=== PATIENT | male | born 1995 ===

== ENCOUNTER 2024-01-29 12:38 | Outpatient (CLI) | payer SELFPAY ==
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
--- OUTSIDE RECORDS SUMMARY | 2024-01-29 12:43 | XMS_ITS | Encounter Summary ---
Author Organization [facility] Address [address] [place] [id number] Care Team Providers Care Line Technician Name Role Phone Evelio Hurtado MD Primary Care Provider [phone] Encounter Details Date Type Department Care Team (Late st Contact Info) Description 11/17/2016 Results Only [facility] [phone] Aleksandr Metcalf MD Social History Tobacco Use Types Packs/Day Years Used Date Smoking Tobacco: Never Assessed Sex and Gender Information Value Date Recorded Sex Assigned at Not on file Gender Identity Male 11/06/2021 13:06 EDT Sexual Orientation Not on file documented as of this encounter Plan of Treatment Not on file documented as of this encounter Procedures Procedure Name Priority Date/Time Associated Diagnosis Comments SURGICAL PATHOLOGY Routine 11/17/2016 14 :41 EDT documented in this encounter Results * SURGICAL PATHOLOGY (11/17/2016 14:41 EDT) Pathology Report: SURGICAL PATHOLOGY REPORT Reports generated via electronic interface contain original data; however they are lacking the format of the original report. Caution should be taken when reading/interpreting unformatted reports. Name: ? ERICK COREA ? Accession #: ? [id number] ? : ? 1995 (Age: 21) ??M ? Collect Date: ? 11/17/2016 ? Location: ? [facility] ? Receive Date: ? 11/19/2016 ? Provider: ALEKSANDR METCALF MD Copy to: MAXIMILIANO HURTADO MD ? Final Pathologic Diagnosis: APPENDIX, APPENDECTOMY: - ??Acute suppurative appendicitis and periappendicitis with prominent lymphoid aggregates. ??See comment. Comment: Well sampling of this case had been performed. Deeper sections have been examined. Case has been reviewed at the intradepartmental GI consensus conference. ?? ANTIBODY(CLONE)(BLOC K):RESULT CD20 (B-cell) (L26, [place]), CD3 (T-cell) (Rabbit Monoclonal (SP7), [employer]), BCL-2 Oncoprotein (124, [place]), CD43 (MT1, [employer]) (2): Highlights detached reactive germinal center in lumen ? NOTE: ??One or more of the reagents used in immunoperoxidase testing in this case may not have been cleared or approved by the U.S. Food and Drug Administration (FDA). ??The FDA has determined that such clearance or approval is not necessary. ??These tests are used for clinical purposes. ??They should not be regarded as investigational or for research. ??These reagents' performance characteristics have been determined by [facility]. ??The positive and negative controls worked appropriately. If immunoperoxidase staining has been performed on alcohol fixed cytology specimens, which has not been fully validated, the assays should be interpreted with caution and correlated with clinical data. ??This laboratory is certified under the Clinical Laboratory Improvement Amendments of 1988 (CLIA-88) as qualified to perform high complexity clinical laboratory testing. Dr. Goodman 11/23/2016 1:11 PM Document reviewed and electronically signed by: DARYL NGUYEN MD Report ??Date: 11/24/2016 06:29 By the signature above, the attending physician certifies that he/she has personally conducted a gross and/or microscopic examination of the described specimens and rendered or confirmed the above diagnosis. Specimen(s) Received: Appendix Clinical History: Acute appendicitis Gross Description: ? Received in formalin labelled with proper patient identification (initials W, W) and not otherwise specified is a vermiform appendix (5.5 cm in length x 0.5 cm in diameter), with a moderate amount of attached mesoappendix. The proximal margin is stapled and inked blue ? The serosa is kennedy-purple dull and hyperemic. The cut surface is ge-pink and hemorrhagic no definitive perforation. The average wall thickness is 0.2 cm. ? The section adjacent to the proximal stapled margin, two wholesale representative cross sections and one half of the longitudinally bisected distal tip are submitted in 1 intermediate cross-sections are submitted in 2-4. JACQUELINE Baldwin (ASCP) 11/19/2016 4:28 PM End of Report [facility] 11/17/2016 14:4 1 EDT 11/19/2016 14:41 EDT Aleksandr Metcalf MD PATHOLOGY ORDERABLES [facility] [address] [place] [address] documented in this encounter Visit Diagnoses Not on filedocumented in this encounter Care Teams Line Technician Relationship Specialty Start Date End Date Evelio Hurtado MD [address] [phone] PCP - General 08/05/16 documented as of this encounter
--- OUTSIDE RECORDS SUMMARY | 2024-01-29 12:43 | XMS_ITS | Encounter Summary ---
Author Organization [facility] Address [address] [place] [address] Care Team Providers Care Aerial Applicator Pilot Name Role Phone Evelio Judge MD Primary Care Provider [phone] Reason for Visit * Reason Comments Diarrhea Pt states he has bee n having watery stools for the past 3days. He has felt nauseated and clammy at times. No recent ABX. Pt is pale and diaphoretic. Encounter Details Date Type Department Care Team (Late st Contact Info) Description 11/06/2021 12:52 EDT - 11/06/2021 14:59 EDT Emergency [facility] Emergency Department [address] [place] [address] Dom Joiner MD [address] [place] [address] Diarrhea of presumed infectious origin (Primary Dx) Discharge Disposition: Home or Self Care Social History Tobacco Use Types Packs/Day Years Used Date Smoking Tobacco: Never Smokeless Tobacco: Never Alcohol Use Standard Drinks/Week Comments Not Currently 0 (1 standard drink = 0.6 oz pur e alcohol) quit drinking in 07/08 Sex and Gender Information Value Date Recorded Sex Assigned at Not on file Gender Identity Male 11/06/2021 13:06 EDT Sexual Orientation Not on file COVID-19 Exposure Response Date Recorded In the last 10 days, have yo u been in contact with someone who was confirmed or suspected to have Coronavirus/COVID-19? No / Unsure 11/06/2021 12:07 EDT documented as of this encounter Last Filed Vital Signs Vital Sign Reading Time Taken Comments Blood Pressure 129/73 11/06/2021 1442 EDT Pulse 97 11/06/2021 1208 EDT Temperature 35.1 ??C (95.2 ??F) 11/06/2021 1208 EDT Respiratory Rate 16 11/06/2021 1442 EDT Oxygen Saturation 99% 11/06/2021 1442 EDT Inhaled Oxygen Concentration - - Weight 136.1 kg (300 lb) 11/06/2021 1208 EDT Height 185.4 cm (6' 1) 11/06/2021 1208 EDT Body Mass Index 39.58 11/06/2021 1208 EDT documented in this encounter Functional Status Functional Status Response Date of Assess ment Are you deaf or do you have serious difficulty h earing? No 11/06/2021 documented as of this encounter Discharge Instructions * Discharge Instructions* Dom Joiner MD - 11/06/2021 14:36 EDT [facility] Emergency Department Discharge Instructions Diagnosis: Presumed infectious diarrhea-symptoms should improve over the next several days For pain you can take: Ibuprofen (also known as advil or motrin) 400-600mg Acetaminophen (known as Tylenol) 650mg You can alternate these every 3 hours or take them together every 6 hours. I would recommend you take Imodium 3-4 times a day before meals. Follow up: Follow-up with your primary care provider as needed. We will call you with the results of your COVID test Return Precautions: If you have significant worsening of your symptoms especially significant abdominal pain, refractory vomiting, or other symptoms that are particularly concerning to you please return to the emergencyroom for reevaluation. documented in this encounter Discharge Disposition Disposition Code Departure Means Destination Home or Self Snf documented in this encounter ED Notes * Dom Joiner MD - 11/06/2021 1304 EDT Emergency Department Visit Assessment and ED Course 26-year-old male presents for evaluation of nonbloody diarrhea for the last 3 days. On arrival herein the emergency department he is awake and alert, hemodynamically stable. Triage vital signs significant for temperature of 95.2. Repeat by myself is 97.9 without intervention immediately upon patient being roomed. Abdominal exam is fairly benign. Symptoms seem consistent with presumed viral gastroenteritis. No fever, bloody stool or travel history to warrant antibiotic use. No history of recent antibioticuse to suggest need for C. difficile testing. Multiple sick contacts at home. We will treat empirically with Zofran, IV fluids. Labs including CBC, CMP, lipase ordered. If lab work largely reassuring anticipate discharge with symptomatic care instructions Final diagnoses: Diarrhea of presumed infectious origin Disposition: Discharged Chief complaint: diarrhea HPI Erick Strauss is a 26 y.o. male presents for evaluation of diarrhea and nausea. Patient states that he began feeling extremely nauseated dizzy and lightheaded on Wednesday night intoWednesday morning at 2 AM. Since then, he has been having increasingly frequent episodes of nonbloodystools. He states that he has been having loose watery diarrhea that today changed into more of a ge frothy color. Generalized mild diffuse abdominal cramping and gassiness . No significant pain. No fevers. No chest pain or difficulty breathing. Multiple sick contacts at home as his children have had a cough and some GI symptoms. Previous history of appendectomy, no other abdominal surgeries. No family history of inflammatory bowel diseases that he is aware of. No blood in his stool reported. No recent travel. History was provided by: Patient Patient's pertinent PMH, FH, SH were reviewed and edited as necessary. ROS A 10-point review of systems was performed. The patient answered negative to all questions with theexceptions of those explicitly detailed as positives in the HPI. Pertinent negatives are also explicitly stated. Physical Exam BP 129/73 Pulse 97 Temp (!) 35.1 ??C (95.2 ??F) (Temporal) Resp 16 Ht 185.4 cm (73) Wt (!) 136.1 kg (300 lb) SpO2 99% BMI 39.58 kg/m?? A medical screening exam was performed. Physical Exam Constitutional: Appearance: He is well-developed and well-nourished. HENT: Nose: No nasal discharge. Cardiovascular: Rate and Rhythm: Normal rate. Pulmonary: Effort: No respiratory distress. Abdominal: General: There is no distension. Comments: Mild diffuse generalized abdominal discomfort. No guarding or rebound. No focal localization of pain Musculoskeletal: General: Normal range of motion. Cervical back: Normal range of motion. Skin: General: Skin is warm and dry. Neurological: Mental Status: He is alert and oriented to person, place, and time. Psychiatric: Mood and Affect: Mood and affect normal. Laboratory results independently reviewed. Procedures Procedures documented in this encounter Plan of Treatment Not on file documented as of this encounter Procedures Procedure Name Priority Date/Time Associated Diagnosis Comments LIPASE STAT 11/06/2021 13:48 EDT COMPREHENSIVE METABOLIC PANEL (CMP) STAT 11/06/2021 13:48 EDT COMPLETE BLOOD COUNT AND DIFFERENTIAL STAT 11/06/2021 13:47 EDT ZZCOVID-19 TEST [facility] PCR Today 11/06/2021 13:42 EDT COVID-19 TESTING Routine 11/06/2021 13:4 2 EDT documented in this encounter Results * LIPASE (11/06/2021 13:48 EDT) Lipase 55 <251 U/L 11/06/2021 14:08 EDT [facility] Blood VENOUS BLOOD / Unknown Venipuncture / Unknown 11/06/2021 13:48 EDT 11/06/2021 13:49 EDT Dom Joiner MD CHEMISTRY & BLOOD GA S ORDERABLES [facility] [address] [place] [address] * (ABNORMAL) COMPREHENSIVE METABOLIC PANEL (CMP) (11/06/2021 13:48 EDT) Sodium 141 136 - 145 mmol/L 11/06/2021 14:08 EDT [facility] Potassium 4.5 3.5 - 5.0 mmol/L 11/06/2021 14:08 EDT [facility] Chloride 104 96 - 110 mmol/L 11/06/2021 14:08 EDT [facility] CO2 Total 24 22 - 32 mmol/L 11/06/2021 14:08 [facility] Glucose 91 70 - 100 mg/dL 11/06/2021 14:08 [facility] BUN 17 10 - 26 mg/dL 11/06/2021 14:08 [facility] Creatinine 0.98 0.66 - 1.25 mg/dL 11/06/2021 14:08 [facility] eGFR 108 >60 mL/min/1.7 3m2 11/06/2021 14:08 [facility] Total Protein 7.4 6.3 - 8.2 g/dL 11/06/2021 14:08 [facility] Albumin 4.3 3.4 - 4.9 g/dL 11/06/2021 14:08 [facility] Alkaline Phosphatase 98 38 - 126 U/L 11/06/2021 14:08 [facility] AST 37 15 - 46 U/L 11/06/2021 14:08 [facility] ALT 58(H) <50 U/L 11/06/2021 14:08 [facility] Bilirubin, Total 0.4 <1.4 mg/dL 11/07/19 14:08 [facility] Calcium 8.9 8.5 - 10.5 mg/dL 11/06/2021 14:08 [facility] Albumin/Globulin Ratio 1.4 1.0 - 2.5 11/06/2021 14:08 [facility] Anion Gap 13 5 - 14 11/06/2021 14:08 [facility] Blood VENOUS BLOOD / Unknown Venipuncture / Unknown 11/06/2021 13:48 EDT 11/06/2021 13:49 EDT Dom Joiner MD CHEMISTRY & BLOOD GA S ORDERABLES [facility] [address] [place] [address] * (ABNORMAL) COMPLETE BLOOD COUNT AND DIFFERENTIAL (11/06/2021 13:47 EDT) [facility] WBC 10.17 4.00 - 10.40 K/cmm 11/06/2021 13:54 [facility] RBC 4.83 4.36 - 5.78 M/cmm 11/06/2021 13:54 [facility] Hemoglobin 14.5 13.8 - 17.3 gm/dL 11/06/2021 13:54 [facility] HCT 42.4 39.5 - 50.2 % 11/06/2021 13:54 [facility] MCV 88 81 - 95 fl 11/06/2021 13:54 [facility] MCH 30.0 27.6 - 33.0 pg 11/06/2021 13:54 [facility] MCHC 34.2 32.8 - 36.4 gm/dL 11/06/2021 13:54 [facility] RDW-CV 11.8 <14.2 % 11/06/2021 13:54 [facility] RDW-SD 38.0 <46.0 fl 11/06/2021 13:54 [facility] PLT 333 141 - 377 K/cmm 11/06/2021 13:54 [facility] MPV 10.2 9.5 - 12.7 fl 11/06/2021 13:54 [facility] % Neutrophils 59.5 % 11/06/2021 13:54 [facility] % Lymphocytes 27.3 % 11/06/2021 13:54 [facility] % Monocytes 9.1 % 11/06/2021 13:54 [facility] % Eosinophils 2.7 % 11/06/2021 13:54 [facility] % Basophils 0.8 % 11/06/2021 13:54 [facility] % Immature Grans 0.6 % 11/07/19 13:54 [facility] Absolute Neutrophils 6.05 2.20 - 8.85 K/cmm 11/06/2021 13:54 [facility] Absolute Lymphocytes 2.78 1.09 - 3.30 K/cmm 11/06/2021 13:54 [facility] Absolute Monocytes 0.93(H) 0.10 - 0.80 K/cmm 11/06/2021 13:54 [facility] Absolute Eosinophils 0.27 0.03 - 0.61 K/cmm 11/06/2021 13:54 [facility] ABS Basophils 0.08 0.01 - 0.11 K/cmm 11/06/2021 13:54 [facility] Absolute Immature Grans 0.06 0.00 - 0.06 K/cmm 11/06/2021 13:54 [facility] Type of Differential: Auto 11/06/2021 13:54 [facility] Blood VENOUS BLOOD / Unknown Venipuncture / Unknown 11/06/2021 13:47 EDT 11/06/2021 13:48 EDT Dom Joiner MD PACKAGES & DNA PROBE ORDERABLES Performing Organization Address [facility]/ZIP Co de Phone Number [facility] [address] [place] [address] * COVID-19 TEST [facility] PCR (11/06/2021 13:42 EDT) Swab ENTIRE NASOPHARYNX / Unknown Swab / Unknown 11/06/2021 13:42 EDT 11/06/2021 13:48 EDT Dom Joiner MD MICROBIOLOGY - GENER AL ORDERABLES [facility] [address] [place] [address] * COVID-19 TESTING (11/06/2021 13:42 EDT) COVID-19 rt-PCR Result Negative Negative 11/07/2021 11:39 EDT [facility] Comment: This test has not been FDA cleared or approved. This test has been authorized by FDA under an EUA for use by authorized laboratories. This test has been authorized only for detection of nucleic acid from 2019-nCoV, not for any other viruses or pathogens. This test is only authorized for the duration of the declaration that circumstances exist justifying the authorization of emergency use of in vitro diagnostic tests for detection and/or diagnosis of 2019-nCoV under section 564(b)(1) of Act, 21 U.S.C ?? 360bbb-3(b) (1), unless the authorization is terminated or revoked sooner. Negative results do not preclude 2019-nCoV infection and should not be used as the sole basis for treatment or other patient management decisions. Negative results must be combined with clinical observations, patient history, and epidemiological information. Testing was performed using the lizzie SARS-CoV-2 assay ([employer] on the Lizzie 6800 System Performing Lab Lizzie 6800 [facility] 11/07/2021 11:39 EDT [facility] Swab ENTIRE NASOPHARYNX / Unknown Swab / Unknown 11/06/2021 13:42 EDT 11/06/2021 13:48 EDT Dom Joiner MD MICROBIOLOGY - GENER AL ORDERABLES [facility] [address] [place] [address] documented in this encounter Visit Diagnoses Diagnosis Diarrhea of presumed infectious origin- Primary documented in this encounter Administered Medications Inactive Administered Medications - up to 3 most recent administrations Medication Order MAR Action Action Date Dose Rate Site lactated ringers BOLUS 1,000 mL 1,000 mL, intravenous, NOW X1, 1 dose, On Billie 11/06/21 at 1345, STAT Given 11/06/2021 13:42 EDT 1,000 mL loperamide (IMODIUM) capsule 2 mg 2 mg, oral, NOW X1, 1 dose, On Billie 11/06/21 at 1345, STAT Given 11/06/2021 13:43 EDT 2 mg ondansetron (PF) (ZOFRAN) injection 4 mg 4 mg, intravenous, NOW X1, 1 dose, On Billie 11/06/21 at 1345, STAT Given 11/06/2021 13:42 EDT 4 mg documented in this encounter Active and Recently Administered Medications Times are shown in EDT. Scheduled Medication Order 11/04/2021 11/05/2021 11/06/2021 lactated ringers BOLUS 1,000 mL (COMPLETED) 1,000 mL, intravenous, NOW X1, 1 dose, On Billie 11/06/21 at 1345, STAT 1342 (Given - Provid er: Katharine Yun RN) loperamide (IMODIUM) capsule 2 mg (COMPLETED) 2 mg, oral, NOW X1, 1 dose, On Billie 11/06/21 at 1345, STAT 1343 (Given - Provid er: Katharine Yun RN) ondansetron (PF) (ZOFRAN) injection 4 mg (COMPLETED) 4 mg, intravenous, NOW X1, 1 dose, On Billie 11/06/21 at 1345, STAT 1342 (Given - Provid er: Katharine Yun RN) documented in this encounter Care Teams Aerial Applicator Pilot Relationship Specialty Start Date End Date Evelio Judge MD [address] [address] PCP - General 08/05/16 documented as of this encounter
--- OUTSIDE RECORDS SUMMARY | 2024-01-29 12:43 | XMS_ITS | Encounter Summary ---
Author Organization [facility] Address [address] [place] [address] Care Team Providers Care Telecommunications Field Engineer Name Role Phone Juwan French MD Primary Care Provider [phone] Encounter Details Date Type Department Care Team ([facility] st Contact Info) Description 09/29/2015 Results Only [facility] [phone] Amadou Arzola MD [address] [place] [phone] Social History Tobacco Use Types Packs/Day Years Used Date Smoking Tobacco: Never Assessed Sex and Gender Information Value Date Recorded Sex Assigned at Not on file Gender Identity Male 11/06/2021 13:06 EDT Sexual Orientation Not on file documented as of this encounter Plan of Treatment Not on file documented as of this encounter Procedures Procedure Name Priority Date/Time Associated Diagnosis Comments TSH Routine 09/29/2015 18:00 EDT documented in this encounter Results * TSH (09/29/2015 18:00 EDT) TSH 1.13 0.55 - 4.78 uIU/ml 09/30/2015 21:13 EDT [facility] BLOOD SPECIMEN / Unknown 09/29/2015 18:00 EDT 09/30/2015 18:00 EDT Amadou Arzola MD CHEMISTRY & BLO OD GAS ORDERABLES [facility] [address] [place] [address] documented in this encounter Visit Diagnoses Not on filedocumented in this encounter Care Teams Telecommunications Field Engineer Relationship Specialty Start Date End Date Juwan French MD [address] [place] [address] PCP - General 01/29/13 08/04/16 documented as of this encounter
--- OUTSIDE RECORDS SUMMARY | 2024-01-29 12:43 | XMS_ITS | Clinical Summary ---
Author Organization [facility] Address [address] [place] [address] Care Team Providers Care Die Fitter Name Role Phone Evelio Judge MD Primary Care Provider [phone] Allergies No known active allergies Medications No known medications Social History Tobacco Use Types Packs/Day Years Used Date Smoking Tobacco: Never Smokeless Tobacco: Never Alcohol Use Standard Drinks/Week Comments Not Currently 0 (1 standard drink = 0.6 oz pur e alcohol) quit drinking in 07/08 Sex and Gender Information Value Date Recorded Sex Assigned at Not on file Gender Identity Male 11/06/2021 13:06 EDT Sexual Orientation Not on file Obstetrics History Last Filed Vital Signs Vital Sign Reading [...] Body Mass Index 39.58 11/06/2021 1208 EDT Plan of Treatment Health Maintenance Due Date Last Done Comments Hepatitis C Screen 1993 Hepatitis B Vaccine (1 of 3 - 19+ 3-dose series) 07/05 COVID-19 Vaccine ( season) 2023 Care Teams Die Fitter Relationship Specialty Start Date End Date Evelio Judge MD [facility] [address] [place] [address] PCP - General 08/05/16
--- OUTSIDE RECORDS SUMMARY | 2024-01-29 12:43 | XMS_ITS | Encounter Summary ---
Author Organization [facility] Address [address] [place] [address] Care Team Providers Care Rejector Name Role Phone Evelio Judge MD Primary Care Provider [phone] Encounter Details Date Type Department Care Team (Late st Contact Info) Description 08/05/2016 Results Only [facility] [phone] Justin Leonard PA-C [address] [place], [place] [id number] Social History Tobacco Use Types Packs/Day Years Used Date Smoking Tobacco: Never Assessed Sex and Gender Information Value Date Recorded Sex Assigned at Not on file Gender Identity Male 11/06/2021 13:06 EDT Sexual Orientation Not on file documented as of this encounter Plan of Treatment Not on file documented as of this encounter Procedures Procedure Name Priority Date/Time Associated Diagnosis Comments CHEST PA 08/05/2016 13:19 EDT documented in this encounter Results * CHEST PA (08/05/2016 13:19 EDT) Anatomical Region Laterality Modality Other 08/05/2016 13:1 9 EDT 08/05/2016 13:30 EDT Narrative 08/05/2016 13:30 EDT CHEST PA ??08/05/2016 1:19 PM Clinical History/Comments: Chest x-ray 1 view for surveillance. COMPARISON: None. TECHNIQUE: Frontal view of the chest was performed using dual energy technique with bone and soft tissue reconstruction. FINDINGS: Soft tissues: ??Normal. Bones: Normal. ?? Cardiac and mediastinal contours:Normal. Lungs: Normal. ?? Pleura/diaphragms:Normal. IMPRESSION: 1. ??Normal chest x-ray. Procedure Note Ashish Ward MD - 08/05/2016 CHEST PA 08/05/2016 1:19 PM Clinical History/Comments: Chest x-ray 1 view for surveillance. COMPARISON: None. TECHNIQUE: Frontal view of the chest was performed using dual energy technique with bone and soft tissue reconstruction. FINDINGS: Soft tissues: Normal. Bones: Normal. Cardiac and mediastinal contours:Normal. Lungs: Normal. Pleura/diaphragms:Normal. IMPRESSION: 1. Normal chest x-ray. Justin Leonard PA-C IMG DIAGNOSTIC I MAGING ORDERABLES documented in this encounter Visit Diagnoses Not on filedocumented in this encounter Care Teams Rejector Relationship Specialty Start Date End Date Evelio Judge MD [address] [phone] PCP - General 08/05/16 documented as of this encounter
--- OUTSIDE RECORDS SUMMARY | 2024-01-29 12:43 | XMS_ITS | Encounter Summary ---
Author Organization [facility] Address [address] [place] [address] Care Team Providers Care Supervisor Soldering Name Role Phone Evelio Judge MD Primary Care Provider [phone] Encounter Details Date Type Department Care Team (Latest Contact Info) Description 08/05/2016 13:04 EDT - 08/05/2016 23:59 EDT Hospital Encounter [facility] - [address] [place] [address] Justin Leonard PA-C [address] [place] [address] Discharge Disposition: Auto Discharge Social History Tobacco Use Types Packs/Day Years Used Date Smoking Tobacco: Never Assessed Sex and Gender Information Value Date Recorded Sex Assigned at Not on file Gender Identity Male 11/06/2021 13:06 EDT Sexual Orientation Not on file documented as of this encounter Discharge Disposition Disposition Code Departure Means Destination Auto Discharge Home documented in this encounter Plan of Treatment Not on file documented as of this encounter Procedures Procedure Name Priority Date/Time Associated Diagnosis Comments PATHOLOGY - SCANNED 08/10/2016 1 4:22 EDT PATHOLOGY - SCANNED 08/07/2016 1 7:35 EDT URINE CHEMICAL (DIP) & SEDIMENT (MICRO) WITHOUT REFLEX TO CULTURE Routine 08/05/2016 13:35 EDT MISCELLANEOUS TEST, SAUSALITO Routine 08/05/2016 13:18 EDT MISCELLANEOUS TEST, SAUSALITO Routine 08/05/2016 13:15 EDT CHROMIUM SERUM Routine 08/05/2016 13:10 EDT COMPLETE BLOOD COUNT AND DIFFERENTIAL Routine 08/05/2016 13:10 EDT COMPREHENSIVE METABOLIC PANEL (CMP) Routine 08/05/2016 13:10 EDT documented in this encounter Results * PATHOLOGY - SCANNED (08/10/2016 14:22 EDT) 08/10/2016 14:2 2 EDT Scan 2 Sanding Line Operator LAB INFO SERVICE AN D SUPPORT & PHONE RESULT * PATHOLOGY - SCANNED (08/07/2016 17:35 EDT) 08/07/2016 17:3 5 EDT Scan 2 Sanding Line Operator LAB INFO SERVICE AN D SUPPORT & PHONE RESULT * (ABNORMAL) URINALYSIS AND MICROSCOPIC (08/05/2016 13:35 EDT) Color, UA Yellow 08/05/2016 14:50 [facility] Clarity, UA Clear 08/05/2016 14:50 [facility] Glucose, UA Neg Neg 08/05/2016 14:50 [facility] Bilirubin, UA Neg Neg 08/05/2016 14:50 [facility] Ketones, UA Neg Neg 08/05/2016 14:50 [facility] Specific Rosie, Urine <1.005 1.001 - 1.035 08/05/2016 14:50 [facility] Blood, UA Trace(A) Neg 08/05/2016 14:50 [facility] pH, UA 5.5 4.6 - 8.0 08/05/2016 14:50 [facility] Protein, UA Neg Neg 08/05/2016 14:50 [facility] Urobilinogen, UA 0.2 0.2 - 1.0 E.U./dl 08/05/2016 14:50 [facility] Nitrite, UA Neg Neg 08/05/2016 14:50 [facility] Leuk Esterase Neg Neg 08/05/2016 14:50 [facility] WBC, UA None seen 0 - 5 /HPF 08/05/2016 14:50 [facility] RBC, UA 1 to 5 0 - 5 /HPF 08/05/2016 14:50 [facility] Squam Epithel, UA None seen None seen /HPF 08/05/2016 14:50 [facility] Renal Epithel, UA None seen None seen /HPF 08/05/2016 14:50 [facility] Bacteria, UA None seen None seen /HPF 08/05/2016 14:50 [facility] Crystals, UA None seen /HPF 08/05/2016 14:50 [facility] Hyaline Casts, UA None seen /LPF 08/05/2016 14:50 [facility] UA Comment Microscopic results 08/05/2016 13:39 [facility] Comment: are unreliable on urines unrefrig >2hrs or refrig >8hrs. URINE / Unknown 08/05/2016 1 3:35 EDT 08/05/2016 13:35 EDT Justin Leonard PA-C URINALYSIS ORDER JONO [facility] [address] [place] [address] * MISCELLANEOUS TEST (08/05/2016 13:18 EDT) Test Name LEAD PROFILE OCCUPATIONAL EXPOSURE 08/05/2016 13:19 T [facility] Result See Pathology Scanned Report in PRISM. 08/10/2016 9:13 T [facility] Ref Range See Pathology Scanned Report in PRISM. 08/10/2016 9:13 [facility] Ref Lab Test performed by: 08/10/2016 9:13 T [facility] Comment: [facility] [place], [place] TOPOGRAPHY UNKNOWN / Unknown 08/05/2016 13:18 EDT 08/05/2016 13:18 EDT Justin SANCHEZC CHEMISTRY & BLOO D GAS ORDERABLES Performing Organization Address City/[facility]/ZIP Co de Phone Number [facility] [address] [place] [address] * MISCELLANEOUS TEST (08/05/2016 13:15 EDT) Test Name CADMIUM, BLOOD 08/05/2016 13:17 EDT [facility] Result See Pathology Scanned Report in PRISM. 08/11/2016 13:32 EDT [facility] Ref Range See Pathology Scanned Report in PRISM. 08/11/2016 13:32 EDT [facility] Ref Lab Test performed by: 08/11/2016 13:32 EDT [facility] Comment: [place], [place] TOPOGRAPHY UNKNOWN / Unknown 08/05/2016 13:15 EDT 08/05/2016 13:15 EDT Justin Leonard PA-C CHEMISTRY & BLOO D GAS ORDERABLES Performing Organization Address City/[facility]/ZIP Co de Phone Number [facility] [address] [place] [address] * (ABNORMAL) COMPREHENSIVE METABOLIC PANEL (CMP) (08/05/2016 13:10 EDT) Potassium 4.7 3.5 - 5.0 mEq/L 08/05/2016 14:02 EDT [facility] Sodium 142 136 - 145 mEq/L 08/05/2016 14:02 EDT [facility] Chloride 102 96 - 110 mEq/L 08/05/2016 14:02 [facility] CO2 25 22 - 32 mEq/L 08/05/2016 [facility] Total Alkaline Phosphatase 98 38 - 126 U/L 08/05/2016 14:02 EDT [facility] Bilirubin, Total 0.8 <1.4 mg/dl 08/06/19 17 14:02 [facility] AST 32 15 - 46 U/L 08/05/2016 14:02 [facility] ALT 44 21 - 72 U/L 08/05/2016 14:02 [facility] Albumin 5.1(H) 3.4 - 4.9 g/dl 08/05/2016 14:02 [facility] Total Protein 8.1 6.3 - 8.2 g/dl 08/05/2016 14:02 [facility] Creatinine 0.99 0.66 - 1.25 mg/dl 08/05/2016 14:02 [facility] GFR, Calculated 107 >60 ml/min/1.7 3m2 08/05/2016 14:02 [facility] Comment: eGFR calculated using CKD-EPI equation for non Americans. Multiply eGFR by 1.16 for Americans. BUN 20 10 - 26 mg/dl 08/05/2016 14:02 [facility] Calcium 9.8 8.5 - 10.5 mg/dl 08/05/2016 14:02 [facility] Calculated Calcium 8.9 8.5 - 10.5 mg/dl 08/05/2016 14:02 [facility] Glucose, Serum 92 70 - 100 mg/dl 08/05/2016 14:02 [facility] Fasting? Unknown 08/05/2016 14:02 [facility] BLOOD SPECIMEN / Unknown 08/05/2016 13:10 EDT 08/05/2016 13:10 EDT Justin Leonard PA-C CHEMISTRY & BLOO D GAS ORDERABLES [facility] [address] [place] [address] * CHROMIUM SERUM (08/05/2016 13:10 EDT) Chromium, Serum 0.2 <0.3 ng/mL 08/07/2016 14:53 [facility] Comment: (Note) . ADDITIONAL INFORMATION This test was developed and its performance characteristics determined by [facility] in a manner consistent with CLIA requirements. This test has not been cleared or approved by the U.S. Food and Drug Administration. Performed by: [facility]: [address], [place] [address], Lab Dir: Erick Meeks II, M.D., Ph.D. BLOOD SPECIMEN / Unknown 08/05/2016 13:10 EDT 08/05/2016 13:10 EDT Justin Leonard PA-C CHEMISTRY & BLOO D GAS ORDERABLES [facility] [address] [place] [address] * (ABNORMAL) HEMAGRAM AND DIFFERENTIAL (08/05/2016 13:10 EDT) WBC 10.43(H) 4.0 - 10.4 K/cmm 08/05/2016 13:45 [facility] RBC 4.63 4.36 - 5.78 M/cmm 08/05/2016 13:45 [facility] Hemoglobin 13.9 13.8 - 17.3 gm/dl 08/05/2016 13:45 [facility] HCT 40.9 39.5 - 50.2 % 08/05/2016 13:45 [facility] MCV 88 81 - 95 fl 08/05/2016 13:45 [facility] MCH 30.0 27.6 - 33.0 pg 08/05/2016 13:45 [facility] MCHC 34.0 32.8 - 36.4 gm/dl 08/05/2016 13:45 [facility] RDW-CV 11.9 11.8 - 14.1 % 08/05/2016 13:45 [facility] RDW-SD 38.2 36.5 - 45.9 fl 08/05/2016 13:45 [facility] PLT 370 141 - 377 K/cmm 08/05/2016 13:45 [facility] MPV 11.0 9.5 - 12.7 fl 08/05/2016 13:45 EDT [facility] % Neutrophils 62.8 % 08/05/2016 13:45 EDT [facility] % Lymphocytes 26.1 % 08/05/2016 13:45 [facility] % Monocytes 7.1 % 08/05/2016 13:45 EDT [facility] % Eosinophils 2.9 % 08/05/2016 13:45 EDT [facility] % Basophils 0.9 % 08/05/2016 13:45 EDT [facility] % Immature Grans 0.2 % 08/05/2016 13:45 [facility] ABS Neutrophils 6.56 2.20 - 8.85 K/cmm 08/05/2016 13:45 [facility] ABS Lymphs 2.72 1.09 - 3.30 K/cmm 08/05/2016 13:45 T [facility] ABS Monocytes 0.74 0.1 - 0.8 K/cmm 08/05/2016 13:45 T [facility] ABS Eosinophils 0.30 0.03 - 0.61 K/cmm 08/05/2016 13:45 [facility] ABS Basophils 0.09 0.01 - 0.11 K/cmm 08/05/2016 13:45 [facility] ABS Immature Grans 0.02 0 - 0.06 K/cmm 08/05/2016 13:45 T [facility] Type of Diff: Automated 08/05/2016 13:45 [facility] BLOOD SPECIMEN / Unknown 08/05/2016 13:10 EDT 08/05/2016 13:10 EDT Justin Leonard PA-C PACKAGES & DNA P ROBE ORDERABLES [facility] [address] [place] [address] documented in this encounter Visit Diagnoses Not on filedocumented in this encounter Care Teams Supervisor Soldering Relationship Specialty Start Date End Date Evelio Judge MD [address] [phone] PCP - General 08/05/16 documented as of this encounter
--- OUTSIDE RECORDS SUMMARY | 2024-01-29 12:43 | XMS_ITS | Encounter Summary ---
Author Organization [facility] Address [address] [place] [address] Care Team Providers Care Transitional Care Manager Name Role Phone Evelio Judge MD Primary Care Provider [phone] Encounter Details Date Type Department Care Team (Latest Contact Info) Description 11/06/2021 Travel Social History Tobacco Use Types Packs/Day Years [...] 12:07 EDT documented as of this encounter Functional Status Functional Status Response Date of Assess ment Are you deaf or do you have serious difficulty h earing? No 11/06/2021 documented as of this encounter Plan of Treatment Not on file documented as of this encounter Visit Diagnoses Not on filedocumented in this encounter Care Teams Transitional Care Manager Relationship Specialty Start Date End Date Evelio Judge MD [address] [phone] PCP - General 08/05/16 documented as of this encounter
--- OUTSIDE RECORDS SUMMARY | 2024-01-29 12:43 | XMS_ITS | Referral Summary ---
Author Organization [facility] Address [address] [place] [address] Care Team Providers Care Planning Advisor Name Role Phone Evelio Judge MD Primary Care Provider Allergies No known active allergies Medications No [...] 13:06 EDT Sexual Orientation Not on file Last Filed Vital Signs Vital Sign Reading [...] Body Mass Index 39.58 11/06/2021 1208 EDT Functional Status Functional Status Response Date of Assess ment Are you deaf or do you have serious difficulty h earing? No 11/06/2021 Plan of Treatment Not on file Care Teams Planning Advisor Relationship Specialty Start Date End Date Evelio Judge MD [address] [phone] PCP - General 08/05/16
--- OUTSIDE RECORDS SUMMARY | 2024-01-29 12:43 | XMS_ITS | Encounter Summary ---
Author Organization [facility] Address [address] [place] [address] Care Team Providers Care Clothing Man Name Role Phone Evelio Judge MD Primary Care Provider [phone] Encounter Details Date Type Department Care Team (Latest Contact Info) Description 11/17/2016 9:08 EDT - 11/17/2016 23:59 EDT Hospital Encounter [address] [address] Unknown, Provider, Discharge Disposition: Auto Discharge Social History Tobacco [...] on filedocumented in this encounter Care Teams Clothing Man Relationship Specialty Start Date End Date Evelio Judge MD [facility] [address] [place] [phone] PCP - General 08/05/16 documented as of this encounter
--- OUTSIDE RECORDS SUMMARY | 2024-01-29 12:44 | XMS_ITS | Encounter Summary ---
Author Organization [facility] Address [address] [place] [address] Care Team Providers Care Jboss Architect Name Role Phone Juwan French MD Primary Care Provider [phone] Encounter Details Date Type Department Care Team (Late st Contact Info) Description 01/29/2013 Results Only [facility] - [facility] ([facility] [address] [place], [place] [id number] Juwan French MD [address] [facility] [address] [place] [address] Social History Tobacco Use Types Packs/Day Years Used Date Smoking Tobacco: Never Assessed Sex and Gender Information Value Date Recorded Sex Assigned at Not on file Gender Identity Male 11/06/2021 13:06 EDT Sexual Orientation Not on file documented as of this encounter Plan of Treatment Not on file documented as of this encounter Procedures Procedure Name Priority Date/Time Associated Diagnosis Comments GLUCOSE 6-PHOSPHATE DEHYDROGENASE ENZYME ACTIVITY, BLD Routine 01/29/2013 10:40 EDT documented in this encounter Results * [id number] DEHYDROGENASE, QUANTITATIVE (01/29/2013 10:40 EDT) Wctsuus-1-Fglenzqf e Dehydrogenase Quant 10.3 8.8 - 13.4 U/g Hb [facility] Comment: Performed or Referred by: [facility]: [facility], [address] [place] [address], Lab Dir: Balbir Hopson III, MD 01/29/2013 10:4 0 EDT 01/29/2013 16:58 EDT Juwan French MD CHEMISTRY & BLOOD GA S ORDERABLES Performing Organization Address City/State/[facility] [[email or web address]] Co [place] [address] documented in this encounter Visit Diagnoses Not on filedocumented in this encounter Care Teams Jboss Architect Relationship Specialty Start Date End Date Juwan French MD [address] [facility] [address] [place] [phone] PCP - General 01/29/13 08/04/16 documented as of this encounter
--- NOTE | 2024-01-29 13:38 | DI.VRAD_ITS ---
PROCEDURE INFORMATION: Exam: XR Chest Exam date and time: 01/29/2024 1:04 PM Age: 28 years old Clinical indication: Cough TECHNIQUE: Imaging protocol: Radiologic exam of the chest. Views: 2 views. COMPARISON: No relevant prior studies available. FINDINGS: Lungs: There are right lower lobe infiltrates. Pleural spaces: Unremarkable. No pleural effusion. No pneumothorax. Heart/Mediastinum: Unremarkable. No cardiomegaly. Bones/joints: Unremarkable. IMPRESSION: Right lower lobe infiltrates, suggestive of pneumonia. Dictated and Authenticated by: Reddy Chatterjee MD. Ordering:ORLANDO Reed MD
== END 2024-01-29 12:58 ==
PROVIDERS: Visit Provider Physician Assistant Medical
DX: R91.8 Other nonspecific abnormal finding of lung field (principal)
CPT/HCPCS: 71046